=== PATIENT | female | born 1960 | race Hispanic/Latino ===

== ENCOUNTER → 2019-01-19 | Day surgery (SDC) | payer MEDICARE, OTHER ==
[~2019-01-19] MED LIST: ALLOPURINOL100 MG PO; ASPIR 8181 MG PO; ATORVASTATIN CA20 MG PO; BIOTIN2500 MCG PO; FUROSEMIDE40 MG PO; HUMALOG100 UNIT/3 SQ; IRON PO; LEVEMIR100 UNIT/1 SQ; LEXAPRO10 MG PO; LOSARTAN POTASS25 MG PO; MIDAZOLAM HCL 2 MG/2 ML VIAL ONE; OMEGA-31000 MG PO; OR PHACO EYE KIT ONE; PREOP PHACO EYE KIT ONE; PROVENTIL HFA6.7 GM INH; RENAGEL800 MG PO; SODIUM CHLORIDE 0.9% 500ML 500 ML ONE; SYMBICORT 80-10.2 GM INH; TEMAZEPAM15 MG PO
--- OUTSIDE RECORDS SUMMARY | 2019-01-19 08:21 | XMS REPORT ---
[facility] Address Unknown Phone Unavailable Care Team Providers Care Script Artist Name Role Phone Unavailable Unavailable Payers Payer Name Policy Type Policy Number Effective Date Expiration Date Problems This patient has no known problems. Allergies, Adverse Reactions, Alerts Allergy Name Allergy Type Status Severity Reaction(s) Onset Date Inactive Date Treating Clinician Comments rosiglitazone maleate DA Active ND 2013-05-28 00:00:00 pioglitazone HCl DA Active ND 2013-05-28 00:00:00 Penicillins DA Active ND 2013-05-28 00:00:00 Sulfa (Sulfonamide Antibiotics) DA Active MO 2013-05-28 00:00:00 enalapril DA Active MO 2013-05-28 00:00:00 Medications This patient has no known medications. Encounters Start Date/Time End Date/Time Encounter Type Admission Type Attending Clinicians Care Facility Care Department Encounter ID 2016-11-20 13:23:14 Inpatient [facility] [id number] 2016-11-18 06:07:29 Inpatient [facility] [id number] 2018-02-03 00:00:00 2018-02-03 00:00:00 Outpatient [facility] [id number] 2017-11-17 00:00:00 2017-11-17 00:00:00 Outpatient [facility] [id number] 2017-04-16 00:00:00 2017-04-16 00:00:00 Outpatient [facility] [id number] 2017-03-20 00:00:00 2017-03-20 00:00:00 Outpatient [facility] [id number] 2017-03-04 00:00:00 2017-03-04 00:00:00 Outpatient [facility] [id number] 2017-01-15 00:00:00 2017-01-15 00:00:00 Outpatient [facility] [id number] 2017-01-08 10:57:24 2017-01-08 10:57:24 Outpatient [facility] [id number] 2017-01-07 14:58:51 2017-01-07 14:58:51 Outpatient [facility] [id number] 2016-11-21 08:43:23 2016-11-21 08:43:23 Outpatient [facility] [id number] 2016-11-21 14:01:25 2016-11-21 00:00:00 Inpatient [facility] [id number] 2016-11-21 11:47:43 2016-11-21 00:00:00 Inpatient [facility] [id number] 2016-11-19 15:57:11 2016-11-19 00:00:00 Inpatient [facility] [id number] 2016-11-19 00:00:00 2016-11-19 00:00:00 Inpatient [facility] [id number] 2016-11-15 05:27:39 2016-11-15 05:27:39 Emergency [facility] [id number] 2016-11-15 04:33:09 2016-11-15 04:33:09 Inpatient [facility] [id number] 2016-10-16 00:00:00 2016-10-16 00:00:00 Outpatient [facility] [id number] Results Test Description Test Time Test Comments Text Results Atomic Results Result Comments GLUBED 2018-08-04 14:38:00 GLUBED (test code=GLUBED) 240 mg/dL 74-106 Performed by certified tightening machine operator at [facility] [id number] 14:38:00* Test Item Value Reference Range Comments GLUBED (test code=GLUBED) 147 mg/dL 74-106 Performed by certified tightening machine operator at [facility] [id number] 14:38:00* Test Item Value Reference Range Comments GLUBED (test code=GLUBED) 215 mg/dL 74-106 Performed by certified tightening machine operator at [facility] [id number] 14:38:00* Test Item Value Reference Range Comments GLUBED (test code=GLUBED) 222 mg/dL 74-106 Performed by certified tightening machine operator at [facility] [id number] 08:39:00* Test Item Value Reference Range Comments GLUBED (test code=GLUBED) 118 mg/dL 74-106 Performed by certified tightening machine operator at [facility] [id number] 21:08:00* Test Item Value Reference Range Comments GLUBED (test code=GLUBED) 255 mg/dL 74-106 Performed by certified tightening machine operator at [facility] [id number] 16:52:00* Test Item Value Reference Range Comments GLUBED (test code=GLUBED) 378 mg/dL 74-106 Performed by certified tightening machine operator at [facility] BASIC METABOLIC [id number] 08:46:00* Test Item Value Reference Range Comments SODIUM (test code=NA) 132 mmol/L 136-145 POTASSIUM (test code=K) 5.8 mmol/L 3.5-5.1 CHLORIDE (test code=CL) 96.0 mmol/L 98-107 CARBON DIOXIDE (test code=CO2) 27.0 mmol/L 21-32 ANION GAP (test code=GAP) 14.8 10-20 GLUCOSE (test code=GLU) 269 mg/dL 74-106 BLOOD UREA NITROGEN (test code=BUN) 94 mg/dL 7-18 GLOMERULAR FILTRATION RATE (test code=GFR) 7 mL/min >=60 Estimated GFR by using Modified MDRD formula.Chronic kidney disease is defined as either kidney damageor GFR <60 mL/min/1.73 m2 for >3 months. CREATININE (test code=CREAT) 6.10 mg/dL 0.55-1.02 Note change in reference range due to change in reagent. BUN/CREATININE RATIO (test code=BUN/CREA) 15.4 10-20 CALCIUM (test code=CA) 9.0 mg/dL 8.5-10.1 BASIC METABOLIC [id number] 08:39:00* Test Item Value Reference Range Comments SODIUM (test code=NA) 132 mmol/L 136-145 POTASSIUM (test code=K) 5.8 mmol/L 3.5-5.1 CHLORIDE (test code=CL) 96.0 mmol/L 98-107 CARBON DIOXIDE (test code=CO2) mmol/L 21-32 ANION GAP (test code=GAP) 10-20 GLUCOSE (test code=GLU) mg/dL 74-106 BLOOD UREA NITROGEN (test code=BUN) mg/dL 7-18 GLOMERULAR FILTRATION RATE (test code=GFR) mL/min >=60 CREATININE (test code=CREAT) mg/dL 0.55-1.02 BUN/CREATININE RATIO (test code=BUN/CREA) 10-20 CALCIUM (test code=CA) mg/dL 8.5-10.1 [id number] 08:33:00* Test Item Value Reference Range Comments GLUBED (test code=GLUBED) 247 mg/dL 74-106 Performed by certified tightening machine operator at [facility] CBC W/AUTO [id number] 08:24:00* Test Item Value Reference Range Comments WHITE BLOOD CELL (test code=WBC) 10.6 K/mm3 4.5-12.5 RED BLOOD CELL (test code=RBC) 2.98 mill/mm3 3.7-5.2 HEMOGLOBIN (test code=HGB) 8.6 gram/dL 11.5-15.5 HEMATOCRIT (test code=HCT) 27.6 % 36.0-46.0 MEAN CELL VOLUME (test code=MCV) 92.6 fL 80-98 MEAN CELL HGB (test code=MCH) 28.9 picogram 27.0-33.0 MEAN CELL HGB CONCETRATION (test code=MCHC) 31.2 gram/dL 33.0-36.0 RED CELL DISTRIBUTION WIDTH (test code=RDW) 16.3 % 11.6-16.2 RED CELL DISTRIBUTION WIDTH SD (test code=RDW-SD) 53.8 fL 37.0-51.0 PLATELET COUNT (test code=PLT) 217 K/mm3 150-450 MEAN PLATELET VOLUME (test code=MPV) 11.8 fL 6.7-11.0 NEUTROPHIL % (test code=NT%) 76.7 % 39.0-69.0 IMMATURE GRANULOCYTE % (test code=IG%) 2.3 % 0.0-5.0 LYMPHOCYTE % (test code=LY%) 13.3 % 25.0-55.0 MONOCYTE % (test code=MO%) 6.2 % 0.0-10.0 EOSINOPHIL % (test code=EO%) 1.2 % 0.0-5.0 BASOPHIL % (test code=BA%) 0.3 % 0.0-1.0 NUCLEATED RBC % (test code=NRBC%) 0.0 % 0-0 NEUTROPHIL # (test code=NT#) 8.10 K/mm3 1.8-7.7 IMMATURE GRANULOCYTE # (test code=IG#) 0.24 x10 3/uL 0-0.03 LYMPHOCYTE # (test code=LY#) 1.41 K/mm3 1.0-5.0 MONOCYTE # (test code=MO#) 0.66 K/mm3 0-0.8 EOSINOPHIL # (test code=EO#) 0.13 K/mm3 0.0-0.5 BASOPHIL # (test code=BA#) 0.03 K/mm3 0.0-0.2 NUCLEATED RBC # (test code=NRBC#) 0.00 K/mm3 0.0-0.1 MANUAL DIFF REQUIRED (test code=MDIFF) NO [id number] 21:16:00* Test Item Value Reference Range Comments GLUBED (test code=GLUBED) 195 mg/dL 74-106 Performed by certified tightening machine operator at [facility] [id number] 15:56:00* Test Item Value Reference Range Comments GLUBED (test code=GLUBED) 84 mg/dL 74-106 Performed by certified tightening machine operator at [facility] [id number] 11:23:00* Test Item Value Reference Range Comments GLUBED (test code=GLUBED) 319 mg/dL 74-106 Performed by certified tightening machine operator at [facility] [id number] 07:48:00* Test Item Value Reference Range Comments GLUBED (test code=GLUBED) 300 mg/dL 74-106 Performed by certified tightening machine operator at [facility] [id number] 22:24:00* Test Item Value Reference Range Comments GLUBED (test code=GLUBED) 97 mg/dL 74-106 Performed by certified tightening machine operator at [facility] [id number] 15:49:00* Test Item Value Reference Range Comments GLUBED (test code=GLUBED) 191 mg/dL 74-106 Performed by certified tightening machine operator at [facility] [id number] 12:18:00* Test Item Value Reference Range Comments GLUBED (test code=GLUBED) 283 mg/dL 74-106 Performed by certified tightening machine operator at [facility] CBC W/O [id number] 10:21:00* Test Item Value Reference Range Comments WHITE BLOOD CELL (test code=WBC) 9.6 K/mm3 4.5-12.5 RED BLOOD CELL (test code=RBC) 2.92 mill/mm3 3.7-5.2 HEMOGLOBIN (test code=HGB) 8.3 gram/dL 11.5-15.5 HEMATOCRIT (test code=HCT) 27.2 % 36.0-46.0 MEAN CELL VOLUME (test code=MCV) 93.2 fL 80-98 MEAN CELL HGB (test code=MCH) 28.4 picogram 27.0-33.0 MEAN CELL HGB CONCETRATION (test code=MCHC) 30.5 gram/dL 33.0-36.0 RED CELL DISTRIBUTION WIDTH (test code=RDW) 16.0 % 11.6-16.2 PLATELET COUNT (test code=PLT) 223 K/mm3 150-450 MEAN PLATELET VOLUME (test code=MPV) 11.5 fL 6.7-11.0 BASIC METABOLIC [id number] 08:30:00* Test Item Value Reference Range Comments SODIUM (test code=NA) 133 mmol/L 136-145 POTASSIUM (test code=K) 5.2 mmol/L 3.5-5.1 CHLORIDE (test code=CL) 94.0 mmol/L 98-107 CARBON DIOXIDE (test code=CO2) 30.0 mmol/L 21-32 ANION GAP (test code=GAP) 14.2 10-20 GLUCOSE (test code=GLU) 284 mg/dL 74-106 BLOOD UREA NITROGEN (test code=BUN) 81 mg/dL 7-18 GLOMERULAR FILTRATION RATE (test code=GFR) 8 mL/min >=60 Estimated GFR by using Modified MDRD formula.Chronic kidney disease is defined as either kidney damageor GFR <60 mL/min/1.73 m2 for >3 months. CREATININE (test code=CREAT) 5.70 mg/dL 0.55-1.02 Note change in reference range due to change in reagent. BUN/CREATININE RATIO (test code=BUN/CREA) 14.2 10-20 CALCIUM (test code=CA) 8.9 mg/dL 8.5-10.1 [id number] 01:19:00* Test Item Value Reference Range Comments GLUBED (test code=GLUBED) 207 mg/dL 74-106 Performed by certified tightening machine operator at [facility] [id number] 23:16:00* Test Item Value Reference Range Comments GLUBED (test code=GLUBED) 268 mg/dL 74-106 Performed by certified tightening machine operator at [facility] [id number] 21:40:00* Test Item Value Reference Range Comments GLUBED (test code=GLUBED) 45 mg/dL 74-106 [facility] certified tightening machine [facility]~ [id number] 21:00:00* Test Item Value Reference Range Comments GLUBED (test code=GLUBED) 43 mg/dL 74-106 Performed [facility] certified tightening machine [facility] [id number] 16:21:00* Test Item Value Reference Range Comments GLUBED (test code=GLUBED) 96 mg/dL 74-106 Performed by certified tightening machine operator at [facility] [id number] 11:29:00* Test Item Value Reference Range Comments GLUBED (test code=GLUBED) 213 mg/dL 74-106 Performed by certified tightening machine operator at [facility] [id number] 11:29:00* Test Item Value Reference Range Comments GLUBED (test code=GLUBED) 162 mg/dL 74-106 Performed by certified tightening machine operator at [facility] [id number] 21:10:00* Test Item Value Reference Range Comments GLUBED (test code=GLUBED) 293 mg/dL 74-106 Performed by certified tightening machine operator at [facility] [id number] 17:19:00* Test Item Value Reference Range Comments GLUBED (test code=GLUBED) 176 mg/dL 74-106 Performed by certified tightening machine operator at [facility] [id number] 11:28:00* Test Item Value Reference Range Comments GLUBED (test code=GLUBED) 230 mg/dL 74-106 Performed by certified tightening machine operator at [facility] [id number] 07:30:00* Test Item Value Reference Range Comments GLUBED (test code=GLUBED) 294 mg/dL 74-106 Performed by certified tightening machine operator at [facility] BASIC METABOLIC [id number] 07:21:00* Test Item Value Reference Range Comments SODIUM (test code=NA) 128 mmol/L 136-145 POTASSIUM (test code=K) 6.7 mmol/L 3.5-5.1 Results called to [id number] by V.LABJAY 07/20/18 0720Critical results verified and read back by Nurse? Y CHLORIDE (test code=CL) 91.0 mmol/L 98-107 CARBON DIOXIDE (test code=CO2) 26.0 mmol/L 21-32 ANION GAP (test code=GAP) 17.7 10-20 GLUCOSE (test code=GLU) 301 mg/dL 74-106 BLOOD UREA NITROGEN (test code=BUN) 116 mg/dL 7-18 GLOMERULAR FILTRATION RATE (test code=GFR) 6 mL/min >=60 Estimated GFR by using Modified MDRD formula.Chronic kidney disease is defined as either kidney damageor GFR <60 mL/min/1.73 m2 for >3 months. CREATININE (test code=CREAT) 7.20 mg/dL 0.55-1.02 Note change in reference range due to change in reagent. BUN/CREATININE RATIO (test code=BUN/CREA) 16.1 10-20 CALCIUM (test code=CA) 9.3 mg/dL 8.5-10.1 [id number] 20:23:00* Test Item Value Reference Range Comments GLUBED (test code=GLUBED) 239 mg/dL 74-106 Performed by certified tightening machine operator at [facility] - CT CHEST W/O [id number] 18:26:00 Name: YOLANDA COSTELLO [facility] : 1960 Age/S: 58 / F [address] [facility] Unit #: [id number] Loc: JESSIE [place] [address] Phys: Alejandro John MD Acct: [id number] Dis Date: Status: ADM IN PHONE #: [phone] Exam Date: 07/19/2018 1730 FAX #: [phone] Reason: dyspnea EXAMS: CPT CODE: [id number] CT CHEST W/O CONTRAST [id number] EXAM: CT of the chest without contrast; INFORMATION: Asthma exacerbation; dyspnea; TECHNIQUE AND FINDINGS: CT dose reduction protocol; 5 mm cuts through the chest without contrast. Lung windows show mild dependent atelectasis and also mild groundglass opacities involving the basilar portions of the left upper lobe and the lateral basilar portion of the right middle lobe; the remainder of the lung parenchyma is unremarkable. The heart is slightly enlarged. Calcified plaques in the left coronary artery and the aortic arch. IMPRESSION: 1. Mild atelectatic changes. 2. Mild cardiomegaly. 3. No acute abnormalities. at 1826 Reported and signed by: Surinder Jarrett M.D. CC: Alejandro John MD; Rolly Mcguire MD Technologist:Ashley Romo RT(R),CT; CTDI: DLP: Trnscb Date/Time: 07/19/2018 (1825) Fatou Orig Print D/T: S: 07/19/2018 (1828) CTDI: DLP: PAGE 1 Signed Report ARTERIAL BLOOD [id number] 18:20:00* Test Item Value Reference Range Comments ARTERIAL BLOOD GAS PH (test code=PHA) 7.40 7.35-7.45 ARTERIAL BLOOD GAS PCO2 (test code=PCO2A) 47.1 mm Hg 35-45 ARTERIAL BLOOD GAS PO2 (test code=PO2A) 98.8 mmHg 80-100 BICARBONATE TOTAL HCO3 (test code=HCO3) 28.3 mmol/L 23.0-27.0 BASE EXCESS (test code=MILENA) 2.9 mmol/L -3.0-5.0 ABG O2 SATURATION (test code=SATA) 96.6 % 90.0-98.0 ABG TYPE (test code=TYPEA) Arterial FIO2 (test code=FIO2A) 32.0 ABG SITE (test code=SITEA) Rt RADIAL ARTERY HEMATOCRIT (test code=HCT/ABG) 31 % 35-47 TOTAL HGB (test code=THB) 10.4 gram/dL 11.5-15.5 HGB O2 SAT (test code=HBOSAT) 95.9 % 94.00-98.00 CARBOXYHEMOGLOBIN (test code=HOHGBT) 0.3 %totalHg 0.5-1.5 Results called to and read back by Juju 18:20 - 07/19/2018; by JOSÉ MIGUEL METHEMOGLOBIN (test code=METHGB) 0.4 % 0.0-1.50 O2 CONTENT (test code=O2CT) 14.2 % vol 18.0-22.0 [id number] 16:29:00* Test Item Value Reference Range Comments GLUBED (test code=GLUBED) 193 mg/dL 74-106 Performed by certified tightening machine operator at [facility] BASIC METABOLIC [id number] 15:53:00* Test Item Value Reference Range Comments SODIUM (test code=NA) 131 mmol/L 136-145 POTASSIUM (test code=K) 5.5 mmol/L 3.5-5.1 CHLORIDE (test code=CL) 92.0 mmol/L 98-107 CARBON DIOXIDE (test code=CO2) 30.0 mmol/L 21-32 ANION GAP (test code=GAP) 14.5 10-20 GLUCOSE (test code=GLU) 216 mg/dL 74-106 BLOOD UREA NITROGEN (test code=BUN) 97 mg/dL 7-18 GLOMERULAR FILTRATION RATE (test code=GFR) 7 mL/min >=60 Estimated GFR by using Modified MDRD formula.Chronic kidney disease is defined as either kidney damageor GFR <60 mL/min/1.73 m2 for >3 months. CREATININE (test code=CREAT) 6.20 mg/dL 0.55-1.02 Note change in reference range due to change in reagent. BUN/CREATININE RATIO (test code=BUN/CREA) 15.6 10-20 CALCIUM (test code=CA) 9.2 mg/dL 8.5-10.1 CBC W/AUTO [id number] 15:51:00* Test Item Value Reference Range Comments WHITE BLOOD CELL (test code=WBC) 10.5 K/mm3 4.5-12.5 RED BLOOD CELL (test code=RBC) 3.08 mill/mm3 3.7-5.2 HEMOGLOBIN (test code=HGB) 9.3 gram/dL 11.5-15.5 HEMATOCRIT (test code=HCT) 27.8 % 36.0-46.0 MEAN CELL VOLUME (test code=MCV) 90.3 fL 80-98 MEAN CELL HGB (test code=MCH) 30.2 picogram 27.0-33.0 MEAN CELL HGB CONCETRATION (test code=MCHC) 33.5 gram/dL 33.0-36.0 RED CELL DISTRIBUTION WIDTH (test code=RDW) 15.4 % 11.6-16.2 RED CELL DISTRIBUTION WIDTH SD (test code=RDW-SD) 50.4 fL 37.0-51.0 PLATELET COUNT (test code=PLT) 229 K/mm3 150-450 MEAN PLATELET VOLUME (test code=MPV) 11.9 fL 6.7-11.0 NEUTROPHIL % (test code=NT%) 73.7 % 39.0-69.0 IMMATURE GRANULOCYTE % (test code=IG%) 2.0 % 0.0-5.0 LYMPHOCYTE % (test code=LY%) 15.6 % 25.0-55.0 MONOCYTE % (test code=MO%) 7.6 % 0.0-10.0 EOSINOPHIL % (test code=EO%) 0.9 % 0.0-5.0 BASOPHIL % (test code=BA%) 0.2 % 0.0-1.0 NUCLEATED RBC % (test code=NRBC%) 0.0 % 0-0 NEUTROPHIL # (test code=NT#) 7.72 K/mm3 1.8-7.7 IMMATURE GRANULOCYTE # (test code=IG#) 0.21 x10 3/uL 0-0.03 LYMPHOCYTE # (test code=LY#) 1.63 K/mm3 1.0-5.0 MONOCYTE # (test code=MO#) 0.79 K/mm3 0-0.8 EOSINOPHIL # (test code=EO#) 0.09 K/mm3 0.0-0.5 BASOPHIL # (test code=BA#) 0.02 K/mm3 0.0-0.2 NUCLEATED RBC # (test code=NRBC#) 0.00 K/mm3 0.0-0.1 BASIC METABOLIC [id number] 15:50:00* Test Item Value Reference Range Comments SODIUM (test code=NA) 131 mmol/L 136-145 POTASSIUM (test code=K) 5.5 mmol/L 3.5-5.1 CHLORIDE (test code=CL) 92.0 mmol/L 98-107 CARBON DIOXIDE (test code=CO2) mmol/L 21-32 ANION GAP (test code=GAP) 10-20 GLUCOSE (test code=GLU) mg/dL 74-106 BLOOD UREA NITROGEN (test code=BUN) mg/dL 7-18 GLOMERULAR FILTRATION RATE (test code=GFR) mL/min >=60 CREATININE (test code=CREAT) mg/dL 0.55-1.02 BUN/CREATININE RATIO (test code=BUN/CREA) 10-20 CALCIUM (test code=CA) 9.2 mg/dL 8.5-10.1 [id number] 11:52:00* Test Item Value Reference Range Comments GLUBED (test code=GLUBED) 290 mg/dL 74-106 Performed by certified tightening machine operator at [facility] [id number] 07:48:00* Test Item Value Reference Range Comments GLUBED (test code=GLUBED) 221 mg/dL 74-106 Performed by certified tightening machine operator at [facility] [id number] 20:02:00* Test Item Value Reference Range Comments GLUBED (test code=GLUBED) 180 mg/dL 74-106 Performed by certified tightening machine operator at [facility] [id number] 17:07:00* Test Item Value Reference Range Comments GLUBED (test code=GLUBED) 125 mg/dL 74-106 Performed by certified tightening machine operator at [facility] [id number] 11:59:00* Test Item Value Reference Range Comments GLUBED (test code=GLUBED) 202 mg/dL 74-106 Performed by certified tightening machine operator at [facility] [id number] 08:03:00* Test Item Value Reference Range Comments GLUBED (test code=GLUBED) 250 mg/dL 74-106 Performed by certified tightening machine operator at [facility] [id number] 18:25:00* Test Item Value Reference Range Comments GLUBED (test code=GLUBED) 162 mg/dL 74-106 Performed by certified tightening machine operator at [facility] [id number] 12:07:00* Test Item Value Reference Range Comments GLUBED (test code=GLUBED) 163 mg/dL 74-106 Performed by certified tightening machine operator at [facility] BASIC METABOLIC [id number] 09:31:00* Test Item Value Reference Range Comments SODIUM (test code=NA) 135 mmol/L 136-145 POTASSIUM (test code=K) 5.1 mmol/L 3.5-5.1 CHLORIDE (test code=CL) 96.0 mmol/L 98-107 CARBON DIOXIDE (test code=CO2) 27.0 mmol/L 21-32 ANION GAP (test code=GAP) 17.1 10-20 GLUCOSE (test code=GLU) 352 mg/dL 74-106 BLOOD UREA NITROGEN (test code=BUN) 65 mg/dL 7-18 GLOMERULAR FILTRATION RATE (test code=GFR) 7 mL/min >=60 Estimated GFR by using Modified MDRD formula.Chronic kidney disease is defined as either kidney damageor GFR <60 mL/min/1.73 m2 for >3 months. CREATININE (test code=CREAT) 5.80 mg/dL 0.55-1.02 Note change in reference range due to change in reagent. BUN/CREATININE RATIO (test code=BUN/CREA) 11.2 10-20 CALCIUM (test code=CA) 8.9 mg/dL 8.5-10.1 BASIC METABOLIC [id number] 09:26:00* Test Item Value Reference Range Comments SODIUM (test code=NA) 135 mmol/L 136-145 POTASSIUM (test code=K) 5.1 mmol/L 3.5-5.1 CHLORIDE (test code=CL) 96.0 mmol/L 98-107 CARBON DIOXIDE (test code=CO2) mmol/L 21-32 ANION GAP (test code=GAP) 10-20 GLUCOSE (test code=GLU) mg/dL 74-106 BLOOD UREA NITROGEN (test code=BUN) mg/dL 7-18 GLOMERULAR FILTRATION RATE (test code=GFR) mL/min >=60 CREATININE (test code=CREAT) mg/dL 0.55-1.02 BUN/CREATININE RATIO (test code=BUN/CREA) 10-20 CALCIUM (test code=CA) 8.9 mg/dL 8.5-10.1 CBC W/AUTO [id number] 09:01:00* Test Item Value Reference Range Comments WHITE BLOOD CELL (test code=WBC) 6.8 K/mm3 4.5-12.5 RED BLOOD CELL (test code=RBC) 3.13 mill/mm3 3.7-5.2 HEMOGLOBIN (test code=HGB) 9.1 gram/dL 11.5-15.5 HEMATOCRIT (test code=HCT) 29.1 % 36.0-46.0 MEAN CELL VOLUME (test code=MCV) 93.0 fL 80-98 MEAN CELL HGB (test code=MCH) 29.1 picogram 27.0-33.0 MEAN CELL HGB CONCETRATION (test code=MCHC) 31.3 gram/dL 33.0-36.0 RED CELL DISTRIBUTION WIDTH (test code=RDW) 15.5 % 11.6-16.2 RED CELL DISTRIBUTION WIDTH SD (test code=RDW-SD) 52.1 fL 37.0-51.0 PLATELET COUNT (test code=PLT) 193 K/mm3 150-450 MEAN PLATELET VOLUME (test code=MPV) 11.9 fL 6.7-11.0 NEUTROPHIL % (test code=NT%) 63.0 % 39.0-69.0 IMMATURE GRANULOCYTE % (test code=IG%) 1.2 % 0.0-5.0 LYMPHOCYTE % (test code=LY%) 26.5 % 25.0-55.0 MONOCYTE % (test code=MO%) 8.4 % 0.0-10.0 EOSINOPHIL % (test code=EO%) 0.6 % 0.0-5.0 BASOPHIL % (test code=BA%) 0.3 % 0.0-1.0 NUCLEATED RBC % (test code=NRBC%) 0.0 % 0-0 NEUTROPHIL # (test code=NT#) 4.25 K/mm3 1.8-7.7 IMMATURE GRANULOCYTE # (test code=IG#) 0.08 x10 3/uL 0-0.03 LYMPHOCYTE # (test code=LY#) 1.79 K/mm3 1.0-5.0 MONOCYTE # (test code=MO#) 0.57 K/mm3 0-0.8 EOSINOPHIL # (test code=EO#) 0.04 K/mm3 0.0-0.5 BASOPHIL # (test code=BA#) 0.02 K/mm3 0.0-0.2 NUCLEATED RBC # (test code=NRBC#) 0.00 K/mm3 0.0-0.1 MANUAL DIFF REQUIRED (test code=MDIFF) NO [id number] 08:06:00* Test Item Value Reference Range Comments GLUBED (test code=GLUBED) 372 mg/dL 74-106 Performed by certified tightening machine operator at [facility] [id number] 20:48:00* Test Item Value Reference Range Comments GLUBED (test code=GLUBED) 350 mg/dL 74-106 Performed by certified tightening machine operator at [facility] [id number] 17:12:00* Test Item Value Reference Range Comments GLUBED (test code=GLUBED) 275 mg/dL 74-106 Performed by certified tightening machine operator at [facility] - XR CHEST 2 [id number] 12:23:00 FAX: Augustine Ha MD [phone] [place]: St: ADM FAX: [place] I [phone] Name: YOLANDA COSTELLO [facility] : 1960 Age/S: 58/F [address] [facility] Unit #: [id number] Loc: [id number] [place] [address] Phys: Augustine Mai MD Acct: [id number] Dis Date: Status: ADM IN PHONE #: [phone] Exam Date: 07/16/2018 1217 FAX #: [phone] Reason: PNEUMONIA EXAMS: CPT CODE: [id number] XR CHEST 2 V 47566 HISTORY: Pneumonia. COMPARISON: July 13, 2018. AP and lateral view of the chest: No acute infiltrates, effusion or congestion. Suboptimal inspiration. Dependent changes. Cardiomegaly. IMPRESSION: No acute infiltrates, effusion or congestion. at 1223 Reported and signed by: Dereje Dhillon M.D. CC: Augustine Mai MD; Rolly Mcguire MD Technologist: RT YULI(R) Trnscrd Date/Time/By: 07/16/2018 (1223) : By: [email or web address] Orig Print D/T: S: 07/16/2018 (1139) PAGE 1 Signed Report [id number] 11:44:00* Test Item Value Reference Range Comments GLUBED (test code=GLUBED) 191 mg/dL 74-106 Performed by certified tightening machine operator at [facility] URINALYSIS [id number] 08:35:00* Test Item Value Reference Range Comments UA COLOR (test code=COLU) LIGHT YELLOW YELLOW UA APPEARANCE (test code=APPU) SLIGHTLY CLOUDY CLEAR UA GLUCOSE DIPSTICK (test code=DGLUU) >=500 mg/dL NEGATIVE UA BILIRUBIN DIPSTICK (test code=BILU) NEGATIVE mg/dL NEGATIVE UA KETONE DIPSTICK (test code=KETU) Negative mg/dL NEGATIVE UA SPECIFIC GRAVITY (test code=SGU) 1.012 1.001-1.035 UA BLOOD DIPSTICK (test code=NAHEED) Negative NEGATIVE UA PH DIPSTICK (test code=ARANZA) 7.0 5.0-8.0 UA PROTEIN DIPSTICK (test code=PROU) 100 (2+) mg/dL NEGATIVE UA UROBILINIOGEN DIPSTICK (test code=URO) NEGATIVE mg/dL NEGATIVE UA NITRITE DIPSTICK (test code=JAVY) NEGATIVE NEGATIVE UA LEUKOCYTE ESTERASE W REFLEX (test code=LEUUR) NEGATIVE NEGATIVE UA WBC (test code=WBCU) 21-50 #/HPF 0-5 UA RBC (test code=RBCU) 0-2 #/HPF 0-5 UA EPITHELIAL CELLS (test code=EPIU) FEW per HPF FEW UA BACTERIA (test code=BACU) MODERATE #/HPF NONE UA MUCUS (test code=MUCU) FEW #/LPF FEW Urine Source? Clean CatchURINALYSIS [id number] 08:28:00* Test Item Value Reference Range Comments UA COLOR (test code=COLU) LIGHT YELLOW YELLOW UA APPEARANCE (test code=APPU) SLIGHTLY CLOUDY CLEAR UA GLUCOSE DIPSTICK (test code=DGLUU) >=500 mg/dL NEGATIVE UA BILIRUBIN DIPSTICK (test code=BILU) NEGATIVE mg/dL NEGATIVE UA KETONE DIPSTICK (test code=KETU) Negative mg/dL NEGATIVE UA SPECIFIC GRAVITY (test code=SGU) 1.012 1.001-1.035 UA BLOOD DIPSTICK (test code=NAHEED) Negative NEGATIVE UA PH DIPSTICK (test code=ARANZA) 7.0 5.0-8.0 UA PROTEIN DIPSTICK (test code=PROU) 100 (2+) mg/dL NEGATIVE UA UROBILINIOGEN DIPSTICK (test code=URO) NEGATIVE mg/dL NEGATIVE UA NITRITE DIPSTICK (test code=JAVY) NEGATIVE NEGATIVE UA LEUKOCYTE ESTERASE W REFLEX (test code=LEUUR) NEGATIVE NEGATIVE UA WBC (test code=WBCU) per HPF 0-5 Urine Source? Clean CatchHEPATITIS B CORE ANTIBODY,[id number] 08:17:00* Test Item Value Reference Range Comments HEPATITIS B CORE ANTIBODY,TOT (test code=HBCAB) Negative Negative Performed At: [facility] [address] [id number] Caraballo MD Ph:[phone] [id number] 07:43:00* Test Item Value Reference Range Comments GLUBED (test code=GLUBED) 221 mg/dL 74-106 Performed by certified tightening machine operator at [facility] AB HEPATITIS B [id number] 06:17:00* Test Item Value Reference Range Comments AB HEPATITIS B SURFACE (test code=HBSAB) Non Reactive () Non Reactive: Inconsistent with immunity, less than 10 mIU/mL Reactive: Consistent with immunity, greater than 9.9 mIU/mLPerformed At: HD [facility] [address] [id number] Caraballo MD Ph:[phone] B-TYPE NATRIURETIC [id number] 20:22:00* Test Item Value Reference Range Comments B-TYPE NATRIURETIC PEPTIDE (test code=BNP) 270.79 pgram/mL 0-100 [id number] 20:08:00* Test Item Value Reference Range Comments GLUBED (test code=GLUBED) 335 mg/dL 74-106 Performed by certified tightening machine operator at [facility] [id number] 17:14:00* Test Item Value Reference Range Comments GLUBED (test code=GLUBED) 276 mg/dL 74-106 Performed by certified tightening machine operator at [facility] [id number] 12:33:00* Test Item Value Reference Range Comments GLUBED (test code=GLUBED) 234 mg/dL 74-106 Performed by certified tightening machine operator at [facility] BASIC METABOLIC [id number] 08:39:00* Test Item Value Reference Range Comments SODIUM (test code=NA) 133 mmol/L 136-145 POTASSIUM (test code=K) 4.5 mmol/L 3.5-5.1 CHLORIDE (test code=CL) 93.0 mmol/L 98-107 CARBON DIOXIDE (test code=CO2) 30.0 mmol/L 21-32 ANION GAP (test code=GAP) 14.5 10-20 GLUCOSE (test code=GLU) 412 mg/dL 74-106 BLOOD UREA NITROGEN (test code=BUN) 52 mg/dL 7-18 GLOMERULAR FILTRATION RATE (test code=GFR) 7 mL/min >=60 Estimated GFR by using Modified MDRD formula.Chronic kidney disease is defined as either kidney damageor GFR <60 mL/min/1.73 m2 for >3 months. CREATININE (test code=CREAT) 5.90 mg/dL 0.55-1.02 Note change in reference range due to change in reagent. BUN/CREATININE RATIO (test code=BUN/CREA) 8.8 10-20 CALCIUM (test code=CA) 8.4 mg/dL 8.5-10.1 CBC W/O [id number] 07:57:00* Test Item Value Reference Range Comments WHITE BLOOD CELL (test code=WBC) 7.6 K/mm3 4.5-12.5 RED BLOOD CELL (test code=RBC) 2.99 mill/mm3 3.7-5.2 HEMOGLOBIN (test code=HGB) 8.9 gram/dL 11.5-15.5 HEMATOCRIT (test code=HCT) 27.0 % 36.0-46.0 MEAN CELL VOLUME (test code=MCV) 90.3 fL 80-98 MEAN CELL HGB (test code=MCH) 29.8 picogram 27.0-33.0 MEAN CELL HGB CONCETRATION (test code=MCHC) 33.0 gram/dL 33.0-36.0 RED CELL DISTRIBUTION WIDTH (test code=RDW) 15.5 % 11.6-16.2 PLATELET COUNT (test code=PLT) 147 K/mm3 150-450 MEAN PLATELET VOLUME (test code=MPV) 12.6 fL 6.7-11.0 [id number] 07:46:00* Test Item Value Reference Range Comments GLUBED (test code=GLUBED) 410 mg/dL 74-106 Performed by certified tightening machine operator at [facility] [id number] 21:00:00* Test Item Value Reference Range Comments GLUBED (test code=GLUBED) 285 mg/dL 74-106 Performed by certified tightening machine operator at [facility] T4 [id number] 17:53:00* Test Item Value Reference Range Comments T4 FREE (test code=T4F) 1.09 ng/dL 0.76-1.46 THYROID STIMULATING [id number] 17:53:00* Test Item Value Reference Range Comments THYROID STIMULATING HORMONE (test code=TSH) 1.590 uIU/mL 0.36-3.74 TSH REFERENCE RANGES: EUTHYROID: 0.35 - 4.3 mIU/mL HYPO : > 5.5 mIU/mL HYPER : < 0.35 mIU/mL [id number] 17:13:00* Test Item Value Reference Range Comments GLUBED (test code=GLUBED) 336 mg/dL 74-106 Performed by certified tightening machine operator at [facility] [id number] 17:09:00* Test Item Value Reference Range Comments GLYCOSYLATED HEMOGLOBIN (HA1C) (test code=GLYHGB) 10.8 % HbA1 4.8-6.0 ESTIMATED AVERAGE GLUCOSE (test code=EAG) 263 MG/DL - XR ABDOMEN AP 1 [id number] 13:07:00 FAX: [place] I [phone] [place]: B St: [facility] FAX: Mario Hunt MD [phone] Name: YOLANDA COSTELLO [facility] : 1960 Age/S: 58/F [place] Nur Unit #: [id number] Loc: V.3072 JESSIE Cruz [address] Phys: Mario Lloyd MD Acct: [id number] Dis Date: Status: ADM IN PHONE #: [phone] Exam Date: 07/14/2018 1243 FAX #: [phone] Reason: obstipation EXAMS: CPT CODE: [id number] XR ABDOMEN AP 1 V 34288 HISTORY: Obstipation. COMPARISON: None available. No bowel obstruction. Nonspecific bowel gas pattern. Phleboliths and vascular calcifications. No pathologic calcifications. IMPRESSION: No bowel obstruction. Constipation. El ectronically Signed by Urszula Dhillon on 07/14/2018 at 1307 Reported and signed by: Dereje Dhillon M.D. CC: Rolly Mcguire MD; Mario Lloyd MD Technologist: Amalia bhakta RT(R); ROBERTO DONG JR Trnscrd Date/Time/By: 07/14/2018 (5278) : By: [email or web address] Orig Print D/T: S: 07/14/2018 (1263) PAGE 1 Signed Report [id number] 12:31:00* Test Item Value Reference Range Comments GLUBED (test code=GLUBED) 400 mg/dL 74-106 Performed by certified tightening machine operator at [facility] [id number] 11:50:00* Test Item Value Reference Range Comments GLUBED (test code=GLUBED) 408 mg/dL 74-106 Performed by certified tightening machine operator at [facility] [id number] 11:30:00* Test Item Value Reference Range Comments GLUBED (test code=GLUBED) 446 mg/dL 74-106 Performed by certified tightening machine operator at [facility] [id number] 07:51:00* Test Item Value Reference Range Comments GLUBED (test code=GLUBED) 233 mg/dL 74-106 Performed by certified tightening machine operator at [facility] [id number] 22:01:00* Test Item Value Reference Range Comments GLUBED (test code=GLUBED) 159 mg/dL 74-106 Performed by certified tightening machine operator at 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 AG HEPAT B [id number] 12:48:00* Test Item Value Reference Range Comments AG HEPAT B SURF (test code=HBSAG) Nonreactive Index Nonreactive COMPREHENSIVE METABOLIC [id number] 06:23:00* Test Item Value Reference Range Comments SODIUM (test code=NA) 138 mmol/L 136-145 POTASSIUM (test code=K) 4.2 mmol/L 3.5-5.1 CHLORIDE (test code=CL) 99.0 mmol/L 98-107 CARBON DIOXIDE (test code=CO2) 29.0 mmol/L 21-32 ANION GAP (test code=GAP) 14.2 10-20 GLUCOSE (test code=GLU) 189 mg/dL 74-106 BLOOD UREA NITROGEN (test code=BUN) 60 mg/dL 7-18 GLOMERULAR FILTRATION RATE (test code=GFR) 7 mL/min >=60 Estimated GFR by using Modified MDRD formula.Chronic kidney disease is defined as either kidney damageor GFR <60 mL/min/1.73 m2 for >3 months. CREATININE (test code=CREAT) 5.80 mg/dL 0.55-1.02 Note change in reference range due to change in reagent. BUN/CREATININE RATIO (test code=BUN/CREA) 10.3 10-20 TOTAL PROTEIN (test code=PROT) 7.8 gram/dL 6.4-8.2 ALBUMIN (test code=ALB) 3.3 g/dL 3.4-5.0 GLOBULIN (test code=GLOB) 4.5 gram/dL 2.7-4.2 ALBUMIN/GLOBULIN RATIO (test code=A/G) 0.7 0.75-1.50 CALCIUM (test code=CA) 8.8 mg/dL 8.5-10.1 BILIRUBIN TOTAL (test code=BILT) 0.30 mg/dL 0.0-1.0 SGOT/AST (test code=AST) 35 IUnit/L 15-37 SGPT/ALT (test code=ALT) 42 IUnit/L 12-78 ALKALINE PHOSPHATASE TOTAL (test code=ALKP) 171 IUnit/L 45-117 Note change in reference range due to change in reagent. [id number] 06:23:00* Test Item Value Reference Range Comments LIPASE (test code=LIP) 464 U/L 73.0-393.0 [id number] 06:23:00* Test Item Value Reference Range Comments CKMB (test code=CKMBT) < 1.0 ng/mL 0-6.0 [id number] 06:23:00* Test Item Value Reference Range Comments TROPONIN-I (test code=TROPI) <0.015 ng/mL 0-0.045 COMPREHENSIVE METABOLIC [id number] 06:21:00* Test Item Value Reference Range Comments SODIUM (test code=NA) 138 mmol/L 136-145 POTASSIUM (test code=K) 4.2 mmol/L 3.5-5.1 CHLORIDE (test code=CL) 99.0 mmol/L 98-107 CARBON DIOXIDE (test code=CO2) mmol/L 21-32 ANION GAP (test code=GAP) 10-20 GLUCOSE (test code=GLU) mg/dL 74-106 BLOOD UREA NITROGEN (test code=BUN) mg/dL 7-18 GLOMERULAR FILTRATION RATE (test code=GFR) mL/min >=60 CREATININE (test code=CREAT) mg/dL 0.55-1.02 BUN/CREATININE RATIO (test code=BUN/CREA) 10-20 TOTAL PROTEIN (test code=PROT) gram/dL 6.4-8.2 ALBUMIN (test code=ALB) g/dL 3.4-5.0 GLOBULIN (test code=GLOB) gram/dL 2.7-4.2 ALBUMIN/GLOBULIN RATIO (test code=A/G) 0.75-1.50 CALCIUM (test code=CA) mg/dL 8.5-10.1 BILIRUBIN TOTAL (test code=BILT) mg/dL 0.0-1.0 SGOT/AST (test code=AST) IUnit/L 15-37 SGPT/ALT (test code=ALT) IUnit/L 12-78 ALKALINE PHOSPHATASE TOTAL (test code=ALKP) IUnit/L 45-117 [id number] 06:21:00* Test Item Value Reference Range Comments LIPASE (test code=LIP) U/L 73.0-393.0 [id number] 06:21:00* Test Item Value Reference Range Comments CKMB (test code=CKMBT) ng/mL 0-6.0 [id number] 06:21:00* Test Item Value Reference Range Comments TROPONIN-I (test code=TROPI) ng/mL 0-0.045 CBC W/AUTO [id number] 06:12:00* Test Item Value Reference Range Comments WHITE BLOOD CELL (test code=WBC) 11.0 K/mm3 4.5-12.5 RED BLOOD CELL (test code=RBC) 3.44 mill/mm3 3.7-5.2 HEMOGLOBIN (test code=HGB) 10.1 gram/dL 11.5-15.5 HEMATOCRIT (test code=HCT) 30.9 % 36.0-46.0 MEAN CELL VOLUME (test code=MCV) 89.8 fL 80-98 MEAN CELL HGB (test code=MCH) 29.4 picogram 27.0-33.0 MEAN CELL HGB CONCETRATION (test code=MCHC) 32.7 gram/dL 33.0-36.0 RED CELL DISTRIBUTION WIDTH (test code=RDW) 15.6 % 11.6-16.2 RED CELL DISTRIBUTION WIDTH SD (test code=RDW-SD) 50.8 fL 37.0-51.0 PLATELET COUNT (test code=PLT) 143 K/mm3 150-450 MEAN PLATELET VOLUME (test code=MPV) 12.6 fL 6.7-11.0 NEUTROPHIL % (test code=NT%) 81.7 % 39.0-69.0 IMMATURE GRANULOCYTE % (test code=IG%) 0.4 % 0.0-5.0 LYMPHOCYTE % (test code=LY%) 11.0 % 25.0-55.0 MONOCYTE % (test code=MO%) 6.1 % 0.0-10.0 EOSINOPHIL % (test code=EO%) 0.5 % 0.0-5.0 BASOPHIL % (test code=BA%) 0.3 % 0.0-1.0 NUCLEATED RBC % (test code=NRBC%) 0.0 % 0-0 NEUTROPHIL # (test code=NT#) 8.99 K/mm3 1.8-7.7 IMMATURE GRANULOCYTE # (test code=IG#) 0.04 x10 3/uL 0-0.03 LYMPHOCYTE # (test code=LY#) 1.21 K/mm3 1.0-5.0 MONOCYTE # (test code=MO#) 0.67 K/mm3 0-0.8 EOSINOPHIL # (test code=EO#) 0.05 K/mm3 0.0-0.5 BASOPHIL # (test code=BA#) 0.03 K/mm3 0.0-0.2 NUCLEATED RBC # (test code=NRBC#) 0.00 K/mm3 0.0-0.1 - XR CHEST 1 [id number] 05:47:00 FAX: Olga Diamond [phone] [place]: B St: REG Name: YOLANDA PULLIAM [facility] : [birth year] Age/S: 58/F [address] Unit #: [id number] Loc: JESSIE Falk [address] Phys: Olga Joyner MD Acct: [id number] Dis Date: Status: REG ER PHONE #: [phone] Exam Date: 07/13/2018 0544 FAX #: [phone] Reason: sob EXAMS: CPT CODE: [id number] XR CHEST 1 V 12858 EXAM: - XR CHEST 1 V HISTORY: Shortness of breath Location code:C3 COMP ARISON: 06/02/2013 FINDINGS: Single AP view of the est is provided. Heart size and vascularity are within normal limits. The lungs are clear of focal consolidation. No effusion, pneumothorax, or acute osseous abnormality. IMPRESSION: 1. No radiographic evidence of acute cardiopulmonary process. Anay ctronically Signed by Urszula Laurent on 07/13/2018 at 0547 Reported and signed by: John Laurent M.D. CC: Olga Joyner MD Technologist: ROBERTO DONG JR Trnscrd Date/Time/By: 07/13/2018 (0547) : By: [email or web address] Orig Print D/T: S: 07/13/2018 (0550) PAGE 1 Signed Report [id number] 15:41:00 RUN DATE: 01/12/18 [place] PAGE 1 RUN TIME: 1541 Specimen Inqui ry RUN USER: INTERFACE PATIENT: YOLANDA COSTELLO ACCT #: [id number] LOC: SHANIA U #: [id number] AGE/SX: 57/F ROOM: RE01/09/18REG DR: Tera Nation MD : 60 BED: DIS: STATUS: [facility] TLOC: SPEC #: [id number] RECD: 01/09/18 STATUS: [facility] #: [id number] MEGHNA: 01/09/18- [facility] DR: Tera Nation MD ENTERED: 01/09/18 SP TYPE: COLON OTHR DR: Ventura Madden MD ORDERED: GROSS COPIES TO: Ventura Dixon MD [address] [facility] [place] [address] [place] [address] Tera Nation MD [address] [address] PROCEDURES: GROSS (-1035) TISSUES: CECUM, NOS - POLYP CLINICAL HISTORY COLLE CTION DATE: 01/09/18 SCREENING FINAL DIAGNOSIS Cecum polyps X2, snare polypectomies: TUBULOVILLOUS ADENOMAS NEGATIVE FOR MALIGNANC Y DMW/vivek D [address] MACROSCOPIC The specimen is rec eived in formalin, labeled with the patient's name, and identified as "cecum p olyp". It consists of multiple chanel biopsy fragments measuring 0.6 cm in aggre gate. This includes nodular fragments. All of the tissue is submitted for mi croscopic evaluation in a single cassette. CONTINUED ON NEXT PAGE RUN DATE: 01/12/18 [place] PAGE 2 RUN TIME: 1541 Specimen Inquiry RUN USER: INTERFACE SPEC #: [id number] PATIENT: YOLANDA COSTELLO #[id number] (Continued)----- ------- MACROSCOPIC (Continued) GROSS PERFORMED AT [facility] [address] [place] [address], [place] [address] (P)[phone] MICROSCOPIC MICROSCOPIC PERFORMED AT [facility] All of the stains, including any controls performed, stain a ppropriately. [facility] [address] [facility], [place] [address] (P)[phone] PERFORMING SITE Diagnosis performed at: [facility], [place] [address] [place] [address] Signed SIGNATURE ON FILE Stefany Almodovar 01/12/18 1541 END OF REPORT
[2019-01-19 11:35] VITALS: BP 144/64
== END | disposition home or self-care (01) ==
LOC: OR 08:12
PROVIDERS: ATTEND Ophthalmology
DX: H25.11 Age-related nuclear cataract, right eye (principal); E11.22 Type 2 diabetes mellitus with diabetic chronic kidney disease; I12.0 Hypertensive chronic kidney disease with stage 5 chronic kidney disease or end stage renal disease; N18.6 End stage renal disease; G47.33 Obstructive sleep apnea (adult) (pediatric); M19.90 Unspecified osteoarthritis, unspecified site; Z88.0 Allergy status to penicillin; Z88.8 Allergy status to other drugs, medicaments and biological substances; J45.909 Unspecified asthma, uncomplicated; Z99.2 Dependence on renal dialysis; Z79.82 Long term (current) use of aspirin; Z79.4 Long term (current) use of insulin
CPT/HCPCS: 36415; 66984; 82948; 84132; J2250; J7040